=== PATIENT | female | born 1940 | race African-American/Black ===

== ENCOUNTER 2019-03-30 16:57 | Emergency (ER) | payer MEDICARE ==
[~2019-03-30] VITALS: Ht 165.1 cm; Wt 60.3 kg
[2019-03-30 17:00] VITALS: BP 139/92
--- NOTE | 2019-03-30 17:15 | PHYS DOC ---
Past Medical History Past Medical History: A-Fib, Arrhythmia, Constipation, Hypertension, Hypo thyroid, Renal Failure Past Surgical History: Other Additional Past Surgical Histo: DNC, Alcohol Use: None Drug Use: None Adult General HPI HPI Patient is an 78-year-old female who presents by ambulance for evaluation of constipation, rectal pressure/fullness. She carries a history of chronic constipation. Medications were recently adjusted.Formerly on Senna, now on MiraLAX. She denies abdominal pain. No problems urinating. Reports pain in her rectum when attempting to pass stool and sit for prolonged period of time. No pain at this time. No other concerns today. Review of Systems Review of Systems Constitutional: Denies fever or chills [] Eyes: Denies change in visual acuity, redness, or eye pain [] HENT: Denies nasal congestion or sore throat [] Respiratory: Denies cough or shortness of breath [] Cardiovascular: No additional information not addressed in HPI [] GI: Denies abdominal pain, nausea, vomiting, bloody stools or diarrhea [] : Denies dysuria or hematuria [] Musculoskeletal: Denies back pain or joint pain [] Integument: Denies rash or skin lesions [] Neurologic: Denies headache, focal weakness or sensory changes [] Endocrine: Denies polyuria or polydipsia [] All other systems were reviewed and found to be within normal limits, except as documented in this note. Current Medications Current Medications Current Medications Medications (Trade) Dose Ordered Sig/Jacek Start Time Stop Time Status Last Admin Dose Admin Magnesium Citrate (Citroma) 150 ml 1X ONCE 03/30/19 17:45 03/30/19 17:46 Allergies Allergies Allergies Coded Allergies Type Severity Reaction Last Updated Verified No Known Drug Allergies 02/13/14 No Physical Exam Physical Exam Constitutional: Well developed, well nourished, no acute distress, non-toxic appearance. [] HENT: Normocephalic, atraumatic, bilateral external ears normal, oropharynx moist, no oral exudates, nose normal. [] Eyes: PERRLA, EOMI, conjunctiva normal, no discharge. [] Neck: Normal range of motion, no tenderness, supple, no stridor. [] Cardiovascular:Heart rate regular rhythm, no murmur [] Lungs & Thorax: Bilateral breath sounds clear to auscultation [] Abdomen: Bowel sounds normal, soft, no tenderness, no masses, no pulsatile masses. Rectal: no impaction. soft stool. [] Skin: Warm, dry, no erythema, no rash. [] Back: No tenderness, no CVA tenderness. [] Extremities: No tenderness, no cyanosis, no clubbing, ROM intact, no edema. [] Neurologic: Alert and oriented X 3, normal motor function, normal sensory function, no focal deficits noted. [] Psychologic: Affect normal, judgement normal, mood normal. [] EKG EKG [] Radiology/Procedures Radiology/Procedures [] Course & Med Decision Making Course & Med Decision Making exam benign. patient states she feels fine. BS present. no abd pain/distention. soft stool in rectal vault. will provide 150 ml mag citrate while here, may repeat dose later tonight. I do not see indication for imaging as bowel obst is felt to be absolutely unlikely. To continue MiraLAX- [facility] staff advised speak with PCP regarding a higher "clean out" dose. Advised can speak with PCP re: GoLYTELY if no results. Strict return precautions reviewed with [facility] staff as well as patient. Dragon Disclaimer Dragon Disclaimer This electronic medical record was generated, in whole or in part, using a voice recognition dictation system. Departure Departure Disposition: 01 HOME, SELF-CARE Condition: STABLE Referrals: MARINA VALDEZ MD (PCP) Patient Instructions: Constipation, Adult ANNA KIRBY APRN Mar 30, 2019 17:15
[2019-03-30] MEDS ORDERED: MAGNESIUM CITRATE 296 ML SOLUTION. PO ONE (17:45)
== END 2019-03-30 18:03 | disposition home or self-care (01) ==
LOC: ER 16:57
DX: K59.00 Constipation, unspecified (principal); I48.91 Unspecified atrial fibrillation; E03.9 Hypothyroidism, unspecified; I12.9 Hypertensive chronic kidney disease with stage 1 through stage 4 chronic kidney disease, or unspecified chronic kidney disease; N18.9 Chronic kidney disease, unspecified
CPT/HCPCS: 99283